=== PATIENT | female | born 1955 | race Asian ===

== ENCOUNTER → 2017-03-10 | Outpatient (CLI) | payer OTHER | LOC: FIMAGING 09:54 | PROVIDERS: ATTEND Internal Medicine | DX: K76.0 Fatty (change of) liver, not elsewhere classified (principal); B18.2 Chronic viral hepatitis C ==

== ENCOUNTER → 2017-10-27 | Outpatient (CLI) | payer OTHER | LOC: FIMAGING 09:37 | PROVIDERS: ATTEND Internal Medicine | DX: B18.2 Chronic viral hepatitis C (principal) ==

== ENCOUNTER → 2018-02-02 | Outpatient (CLI) | payer OTHER | LOC: CIMAGING 08:48 | PROVIDERS: ATTEND Family Medicine | DX: K76.0 Fatty (change of) liver, not elsewhere classified (principal); K76.89 Other specified diseases of liver | CPT/HCPCS: 76705-PO ==

== ENCOUNTER → 2018-02-04 | Outpatient (CLI) | payer OTHER ==
[~2018-02-04] MED LIST: IOPAMIDOL (ISOVUE-300) 100 ML BTL ONE
== END ==
LOC: CIMAGING 08:10
PROVIDERS: ATTEND Family Medicine
DX: K76.89 Other specified diseases of liver (principal)
CPT/HCPCS: 74160-PO; Q9967

== ENCOUNTER → 2018-10-19 | Outpatient (CLI) | payer OTHER | LOC: EMCIMAGING 08:45 ==